=== PATIENT | male | born 1970 | race Caucasian/White ===

== ENCOUNTER → 2017-10-29 | Outpatient (CLI) | payer OTHER ==
[~2017-10-29] MED LIST: IOPAMIDOL 370 MG/ML 200 ML INFUS..BTL INJ ONE; SODIUM CHLORIDE 0.9% 250ML 250 ML ONE
--- NOTE | 2017-10-29 18:34 | Diagnostic Imaging Report ---
PROCEDURE: CT ABDOMEN \T\ PELVIS W/WO CONTRAST TECHNIQUE: The abdomen and pelvis were scanned utilizing a multidetector helical scanner from the diaphragm to the lesser trochanter before and after the IV administration of 150 cc of Isovue 370 and the oral administration of water . Coronal and sagittal multiplanar reformations were obtained. COMPARISON: [facility], CT, CT ABDOMEN/PELVIS WO, 05/07/2013, 9:27. INDICATIONS: HEMATURIA FINDINGS: LOWER THORAX: 1.4 cm focal groundglass opacities in the posteromedial left lower lobe (series 3, image 22 and 29). Lung bases are otherwise clear. HEPATOBILIARY: Normal hepatic size and contour. Diffuse hepatic steatosis. No focal lesions. No biliary ductal dilation. Gallbladder is unremarkable. SPLEEN: No splenomegaly. PANCREAS: No focal masses or ductal dilatation. ADRENALS: No adrenal nodules. KIDNEYS/URETERS: No renal or ureteral calculi. No hydronephrosis, hydroureter, or evidence of obstruction. Symmetrical renal enhancement. There is good contrast opacification of bilateral renal collecting systems, renal pelves, and bilateral ureters. No filling defects, strictures, or extrinsic compressions. 1.6 x 1.4 x 1.2 cm entirely intracortical hypodense lesion in the medial interpolar right kidney (series 6, image 57), which shows mild postcontrast enhancement. Subcentimeter hypodense lesions in the left kidney are too small to characterize, but likely represent small cysts. PELVIC ORGANS/BLADDER: Bladder is unremarkable, without focal lesions or calculi. Prostate and seminal vesicles are unremarkable. PERITONEUM / RETROPERITONEUM: No free air or fluid. LYMPH NODES: No lymphadenopathy. VESSELS: Unremarkable. GI TRACT: No bowel dilation or evidence of obstruction. No pericolonic inflammatory changes. Small hiatal hernia with metallic clips noted in the GE junction. BONES AND SOFT TISSUES: No aggressive lytic lesions. Multilevel degenerative disc changes in the lower thoracic spine. IMPRESSION: 1. no renal, ureteral, or bladder calculi, hydronephrosis, or obstruction. No filling defects, strictures, or extrinsic compression in the opacified portions of the genitourinary system. Bladder is unremarkable. 2. 1.6 cm hypodense lesion in the medial interpolar right kidney shows mild postcontrast enhancement, and is indeterminate. Given its entirely intracortical location, pseudo-enhancement is a diagnostic possibility. Recommend further evaluation with contrast-enhanced MRI abdomen with renal mass protocol. 3. Diffuse hepatic steatosis. 4. Focal groundglass opacities in the posteromedial left lower lobe may represent resolving infection or inflammation, focal fibrosis or atelectasis. Dean Laguerre M.D. Dictated by: Dean Laguerre M.D. on 10/29/2017 at 18:35 Electronically approved by: Dean Laguerre M.D. on 10/29/2017 at 18:35
== END ==
LOC: CT 16:26
PROVIDERS: ATTEND Urology
DX: R31.9 Hematuria, unspecified (principal)
CPT/HCPCS: 74178; J7050; Q9967

== ENCOUNTER 2018-07-14 16:03 | Emergency (ER) | payer OTHER ==
[~2018-07-14] VITALS: Ht 167.6 cm; Wt 93.4 kg
--- OUTSIDE RECORDS SUMMARY | 2018-07-14 16:06 | XMS REPORT ---
Author Author [facility] Address Unknown Phone Unavailable Care Team Providers Care [employer] Coach Name Role Phone Marcelo INTERIANO Unavailable Unavailable Problems This patient has no known problems. Allergies, Adverse Reactions, Alerts This patient has no known allergies or adverse reactions. Medications This patient has no known medications. Results Test Description Test Time Test Comments Text Results Atomic Results Result Comments CT ABDOMEN/PELVIS WOW [place] [address] Patient Name: JOHAN DUNN MR #: [id number] : 1970 Age/Sex: 47/M Req #: [id number] Adm Physician: Ordered by: PRANEETH INTERIANO MD Report #: [id number] Location: CT Room/Bed: Procedure: [id number] CT/CT ABDOMEN/PELVIS WOW Exam Date: 10/29/17 Exam Time: 1717 REPORT STATUS: Signed PROCEDURE: CT ABDOMEN T PELVIS W/WO CONTRAST TECHNIQUE: The abdomen and pelvis were scanned utilizing a multidetector helical scanner from the diaphragm to the lesser trochanter before and after the IV administration of 150 cc of Isovue 370 and the oral administration of water . Coronal and sagittal multiplanar reformations were obtained. COMPARISON: [facility], CT, CT ABDOMEN/PELVIS WO, 05/07/2013, 9:27. INDICATIONS: HEMATURIA FINDINGS: LOWER THORAX: 1.4 cm focal groundglass opacities in the posteromedial left lower lobe (series 3, image 22 and 29). Lung bases are otherwise clear. HEPATOBILIARY: Normal hepatic size and contour. Diffuse hepatic steatosis. No focal lesions. No biliary ductal dilation. Gallbladder is unremarkable. SPLEEN: No splenomega ly. PANCREAS: No focal masses or ductal dilatation. ADRENALS: No adrenal nodules. KIDNEYS/URETERS: No renal or ureteral calculi. No hydronephrosis, hydroureter, or evidence of obstruction. Symmetrical renal enhancement. There is good contrast opacification of bilateral renal collecting systems, renal pelves, and bilateral ureters. No filling defects, strictures, or extrinsic compressions. 1.6 x 1.4 x 1.2 cm entirely intracortical hypodense lesion in the medial interpolar right kidney (series 6, image 57), which shows mild postcontrast enhancement. Subcentimeter hypodense lesions in the left kidney are too small to characterize, but likely represent small cysts. PELVIC ORGANS/BLADDER: Bladder is unremarkable, without focal lesions or calculi. Prostate and seminal vesicles are unremarkable. PERITONEUM / RETROPERITONEUM: No free air or fluid. LYMPH NODES: No lymphadenopathy. VESSELS: Unremarkable. GI TRACT: No bowel dilation or evidence of ob struction. No pericolonic inflammatory changes. Small hiatal hernia with metallic clips noted in the GE junction. BONES AND SOFT TISSUES: No aggressive lytic lesions. Multilevel degenerative disc changes in the lower thoracic spine. IMPRESSION: 1. no renal, ureteral, or bladder calculi, hydronephrosis, or obstruction. No filling defects, strictures, or extrinsic compression in the opacified portions of the genitourinary system. Bladder is unremarkable. 2. 1.6 cm hypodense lesion in the medial interpolar right kidney shows mild postcontrast enhancement, and is indeterminate. Given its entirely intracortical location, pseudo-enhancement is a diagnostic possibility. Recommend further evaluation with contrast- enhanced MRI abdomen with renal mass protocol. 3. Diffuse hepatic steatosis. 4. Focal groundglass opacities in the posteromedial left lower lobe may represent resolving infection or inflammation, focal fibrosis or atelectasis. Ivan Laguerre M.D. Dictated by: Ivan Laguerre M.D. on 10/29/2017 at 18:35 Electronically approved by: Ivan Laguerre M.D. on 10/29/2017 at 18:35 Dictated By: IVAN LAGUERRE MD 34 Transcribed By: SHALINI on 10/29/171834 COPY TO: PRANEETH INTERIANO MD
[2018-07-14] MEDS ORDERED: ALBUTEROL SULF 0.083% NEB SOLN 3 ML NEB NEB STA (16:24)
[2018-07-14] MEDS ORDERED: IPRATROPIUM BROMIDE 0.02% 2.5 ML NEB NEB STA (16:24)
[2018-07-14] MEDS ORDERED: DEXAMETHASONE SOD PHOS 10 MG/1 ML VIAL INJ NR (16:30)
[2018-07-14] MEDS ORDERED: ACETAMINOPHEN/CODEINE ELIX 120-12 MG/5 ML UDC PO NR (16:30)
--- NOTE | 2018-07-14 17:08 | Diagnostic Imaging Report ---
EXAMINATION: CHEST 2 VIEWS INDICATION: Productive cough and congestion COMPARISON: No relevant priors FINDINGS: PA and lateral views TUBES and LINES: None. LUNGS: Lungs are well inflated. There is no evidence of pneumonia or pulmonary edema. PLEURA: No pleural effusion or pneumothorax. HEART AND MEDIASTINUM: The cardiomediastinal silhouette is unremarkable.. BONES AND SOFT TISSUES: Mild degenerative changes of the spine. No focal osseous lesions. Soft tissues are unremarkable. UPPER ABDOMEN: No free air under the diaphragm. IMPRESSION: No acute thoracic abnormality. Signed by: Dr. Jeannette Buenrostro MD on 07/14/2018 5:05 PM
[2018-07-14 17:43] LABS: BASOPHILS % 0.3 % (0.0-1.0); EOSINOPHILS # (AUTO) 0.3 (0.0-0.4); EOSINOPHILS % 2.2 % (0.0-6.0); HEMATOCRIT 44.8 % (38.2-49.6); HEMOGLOBIN 14.5 g/dL (14.0-18.0); LYMPHOCYTES # (AUTO) 1.5 (1.0-3.2); LYMPHOCYTES % 10.7 % (18.0-39.1); MEAN CORPUSCULAR HEMOGLOBIN 28.1 pg (28-32); MEAN CORPUSCULAR HGB CONC 32.4 g/dL (31-35); MEAN CORPUSCULAR VOLUME 86.8 fL (81-99); MONOCYTES # (AUTO) 1.2 (0.2-0.8); MONOCYTES % 8.4 % (4.4-11.3); NEUTROPHILS # (AUTO) 11.1 (2.1-6.9); NEUTROPHILS % 77.4 % (38.7-80.0); PLATELET COUNT 266 x10e3/uL (140-360); RED BLOOD COUNT 5.16 x10e6/uL (4.3-5.7)
[2018-07-14 17:58] LABS: ALANINE AMINOTRANSFERASE 56 IU/L (0-55); ALBUMIN 3.7 g/dL (3.5-5.0); ALBUMIN/GLOBULIN RATIO 0.9 (0.8-2.0); ALKALINE PHOSPHATASE 61 IU/L (40-150); ANION GAP 17.1 mmol/L (8-16); BLOOD UREA NITROGEN 11 mg/dL (7-26); BUN/CREATININE RATIO 12 (6-25); CALCIUM 8.8 mg/dL (8.4-10.2); CARBON DIOXIDE 25 mmol/L (22-29); CHLORIDE 97 mmol/L (98-107); CREATININE, SERUM 0.89 mg/dL (0.72-1.25); EST GLOMERULAR FILTRATION RATE > 60 ML/MIN (60-); GLUCOSE 102 mg/dL (74-118); POTASSIUM 4.1 mmol/L (3.5-5.1); SODIUM 135 mmol/L (136-145)
--- NOTE | 2018-07-14 18:01 | Diagnostic Imaging Report ---
Soft Tissue Neck CPT code: 78353 History: Difficulty swallowing Comparison: None. Findings: AP and lateral views obtained. There is no radiopaque foreign body. The prevertebral soft tissues are normal. The airway is neither dilated nor narrowed. The epiglottis is normal. Lung apices are clear. No vascular calcifications in the soft tissues. There are mild degenerative changes of the cervical spine, most significant at C5-6, C6-7, and C7-T1. There is straightening of the cervical spine suggestive of spasm. IMPRESSION: No soft tissue edema. Other findings as described above.. Signed by: Dr. Jeannette Buenrostro MD on 07/14/2018 5:57 PM
[2018-07-14] MEDS ORDERED: IOPAMIDOL 370 MG/ML 200 ML INFUS..BTL INJ ONE (18:46)
[2018-07-14] MEDS ORDERED: SODIUM CHLORIDE 0.9% 50ML 50 ML ONE (18:46)
--- NOTE | 2018-07-14 19:04 | Diagnostic Imaging Report ---
History: Difficulty swallowing Comparison studies: Plain films of the cervical spine on 07/14/2018 Technique: Axial, coronal and sagittal images from the skull base to the thoracic inlet. Coronal and sagittal images reconstructed from the axial data. Dose modulation, iterative reconstruction, and/or weight based adjustment of the mA/kV was utilized to reduce the radiation dose to as low as reasonably achievable. Intravenous contrast: 100 cc of Omnipaque 300. Findings: Airway: Patent. Soft tissues: Ill-defined enlargement of the area epiglottic folds partially effacement of the piriform sinuses and the supraglottic airway. No masses. No abscess. Lymph nodes: No radiographically significant adenopathy. Vessels: Arteries and veins are patent. Glands (thyroid, parotid and submandibular): Normal in size and symmetric. No masses. Orbits: No abnormalities. Paranasal sinuses: Moderate scattered mucosal thickening throughout the paranasal sinuses. Temporal bones: No abnormalities. Skull base and facial bones: Intact. Cervical spine: Slight reversal of the usual lordosis centered at C5. Mildly degenerated this from C5 to T1. IMPRESSION: 1. Nonspecific supraglottic inflammatory changes. No masses. No abscess. 2. No radiographically significant adenopathy. 3. Moderate mucosal thickening throughout the paranasal sinuses. Signed by: Dr. Reza Hernandez M.D. on 07/14/2018 7:01 PM
[2018-07-14 19:28] VITALS: BP 127/71
== END 2018-07-14 19:30 | disposition home or self-care (01) ==
LOC: ER 16:03
DX: R05 Cough (principal); J20.9 Acute bronchitis, unspecified; I10 Essential (primary) hypertension; G47.30 Sleep apnea, unspecified
CPT/HCPCS: 36415; 70360; 70491; 71046; 80053; 85025; 94640; 99284; J1100; Q9967

== ENCOUNTER 2024-07-02 23:54 | Emergency (ER) | payer OTHER ==
[~2024-07-02] VITALS: Ht 167.6 cm; Wt 93.4 kg
[2024-07-03 00:06] VITALS: TEMP 97.7
[2024-07-03] MEDS: ONDANSETRON HCL INJ 2MG/ML 2ML 2 MG/ML VIAL IV STA (00:19)
[2024-07-03] MEDS: DICYCLOMINE HCL 20 MG/2 ML VIAL IM ONE (00:20)
[2024-07-03] MEDS: KETOROLAC TROMETHAMINE 30 MG/ML VIAL IV STA (00:20)
[2024-07-03 00:22] LABS: BASOPHILS # (AUTO) 0.1 (0.0-0.1); BASOPHILS % 0.6 % (0.0-1.0); EOSINOPHILS # (AUTO) 0.6 (0.0-0.4); EOSINOPHILS % 5.2 % (0.0-6.0); HEMATOCRIT 45.4 % (38.2-49.6); HEMOGLOBIN 14.6 g/dL (14.0-18.0); LYMPHOCYTES # (AUTO) 1.4 (1.0-3.2); LYMPHOCYTES % 12.6 % (18.0-39.1); MEAN CORPUSCULAR HGB CONC 32.2 g/dL (31-35); MONOCYTES # (AUTO) 0.8 (0.2-0.8); MONOCYTES % 7.3 % (4.4-11.3); NEUTROPHILS # (AUTO) 7.9 (2.1-6.9); NEUTROPHILS % 73.8 % (38.7-80.0); PLATELET COUNT 250 x10e3/uL (140-360); RED BLOOD COUNT 5.22 x10e6/uL (4.3-5.7); RED CELL DISTRIBUTION WIDTH 13.2 % (11.7-14.4); WHITE BLOOD COUNT 10.69 x10e3/uL (4.8-10.8)
[2024-07-03 00:42] LABS: ALBUMIN/GLOBULIN RATIO 1.1 (0.8-2.0); ANION GAP 15.8 mmol/L (8-16); BILIRUBIN,TOTAL 0.3 mg/dL (0.2-1.2); CALCIUM 8.9 mg/dL (8.4-10.2); CREATININE, SERUM 0.96 mg/dL (0.72-1.25); LIPASE 18 U/L (8-78); POTASSIUM 3.8 mmol/L (3.5-5.1); TOTAL PROTEIN 7.7 g/dL (6.5-8.1)
[2024-07-03 00:57] LABS: TROPONIN I < 0.001 ng/mL (0-0.300)
[2024-07-03 01:30] VITALS: PULSE 71; RESP 18; O2SAT 97
[2024-07-03] MEDS ORDERED: DICYCLOMINE HCL20 MG PO (01:37)
[2024-07-03] MEDS ORDERED: ONDANSETRON ODT4 MG SL (01:37)
[2024-07-03] MEDS ORDERED: PANTOPRAZOLE SO40 MG PO (01:37)
== END 2024-07-03 01:55 | disposition home or self-care (01) ==
LOC: ER 23:58
DX: R10.11 Right upper quadrant pain (principal); K80.20 Calculus of gallbladder without cholecystitis without obstruction; K80.50 Calculus of bile duct without cholangitis or cholecystitis without obstruction; I10 Essential (primary) hypertension; K21.9 Gastro-esophageal reflux disease without esophagitis; G47.30 Sleep apnea, unspecified
CPT/HCPCS: 36415; 76705; 80053; 83690; 84484; 85025; 93005; 99284; J0500; J1885; J2405; J2470